=== PATIENT | male | born 1975 | race Hispanic/Latino ===

== ENCOUNTER 2017-09-17 00:54 | Inpatient (IN) | payer MEDICAID, OTHER ==
[~2017-09-17] VITALS: Ht 149.9 cm; Wt 70.1 kg
[2017-09-18] VITALS (13 sets, daily range): BP systolic 78–89; BP diastolic 58–68
[2017-09-18 04:59] LABS: MEAN CORPUSCULAR HEMOGLOBIN 30.7 pg (27.0-33.0); MEAN CORPUSCULAR HGB CONC 33.9 g/dL (32.0-36.0); MEAN CORPUSCULAR VOLUME 90.5 fL (79-99); PLATELET COUNT (AUTO) 193 K/uL (130-400); RED BLOOD CELL COUNT(AUTO) 5.19 MIL/uL (4.50-6.20); RED CELL DISTRIBUTION WIDTH 14.1 % (11.0-15.5); WHITE BLOOD COUNT (AUTO) 6.3 K/uL (4.8-10.8)
[2017-09-18 05:04] LABS: INR 1.01 (0.85-1.15); PARTIAL THROMBOPLASTIN TIME 25.5 SEC (26.3-35.5); PROTHROMBIN TIME 10.6 SEC (9.6-11.6)
[2017-09-18] MEDS ORDERED: ATOR10 PO (05:10)
[2017-09-18] MEDS ORDERED: FAMO20PI2 IV (05:10)
[2017-09-18] MEDS ORDERED: ENOX40DI9 SQ (05:10)
[2017-09-18] MEDS ORDERED: METO25TA6 PO (05:10)
[2017-09-18] MEDS ORDERED: FURO20TA4 PO (05:10)
[2017-09-18] MEDS ORDERED: ASPI-1005 PO (05:10)
[2017-09-18 05:11] LABS: BAND NEUTROPHILS % (MANUAL) 5 % (0-2); EOSINOPHILS % (MANUAL) 2 % (1-6); LYMPHOCYTES % (MANUAL) 20 % (22-44); MONOCYTES % (MANUAL) 8 % (2-9); SEGMENTED NEUTROPHILS % 65 % (40-70)
[2017-09-18 05:12] LABS: MAN.DIFF COMMENT-IMPRESSION MANUAL DIFFERENTIAL; PLATELET MORPHOLOGY COMMENT ADEQUATE
[2017-09-18 05:23] LABS: ALBUMIN 3.6 g/dL (3.5-5.0); BILIRUBIN,TOTAL 0.8 mg/dL (0.2-1.0); CREATINE KINASE MB 0.5 ng/mL (0.5-3.6); CREATININE 1.4 mg/dL (0.5-1.5); POTASSIUM 3.8 mmol/L (3.5-5.1); TOTAL PROTEIN, SERUM 6.7 g/dL (6.0-8.3); TROPONIN I 0.06 ng/mL (0.00-0.06)
[2017-09-18 05:39] LABS: HEMOGLOBIN A1C 5.7 % (4.0-6.0)
[2017-09-18] MEDS ORDERED: ACETAMINOPHEN 325 MG TAB PO PRN (06:00)
[2017-09-18] MEDS ORDERED: ONDANSETRON HCL MDV 20ML 2 MG/ML VIAL IVP PRN (06:00)
[2017-09-18] MEDS ORDERED: FUROSEMIDE 20 MG TABLET PO SCH (07:30)
[2017-09-18] MEDS: FAMOTIDINE/PF 20 MG/2 ML VIAL IV SCH (09:00)
[2017-09-18] MEDS: METOPROLOL TARTRATE 25 MG TAB PO SCH ×2 (09:00→20:24)
[2017-09-18] MEDS ORDERED: ASPIRIN 81MG TAB.CHEW PO SCH (09:00)
[2017-09-18] MEDS ORDERED: ENOXAPARIN SODIUM 40 MG/0.4 ML SYRINGE SQ SCH (09:00)
[2017-09-18] MEDS ORDERED: SODIUM CHLORIDE 0.9% 1000ML 1,000 ML IV ONE (11:52)
[2017-09-18] MEDS ORDERED: HEPARIN SODIUM 1000UNIT/ML 10ML VIAL ONE (11:58)
[2017-09-18] MEDS ORDERED: NITROGLYCERIN 5 MG/ML 10 ML VIAL IV ONE (11:58)
[2017-09-18] MEDS ORDERED: IOPAMIDOL-370 100 ML VIAL IV ONE (11:58)
[2017-09-18] MEDS ORDERED: LIDOCAINE HCL 1% 20 ML VIAL ONE (11:58)
[2017-09-18] MEDS ORDERED: HEPARIN SODIUM 1000UNIT/ML 10ML VIAL IV ONE (12:00)
[2017-09-18] MEDS ORDERED: ALBUMIN (HUMAN) 25% 50 ML IV ONE (12:00)
[2017-09-18] MEDS ORDERED: CALCIUM CHLORIDE 100 MG/ML 10 ML SYG IVP ONE (12:00)
[2017-09-18] MEDS ORDERED: SODIUM BICARB 8.4% 50ML SYRINGE IVP ONE (12:00)
[2017-09-18] MEDS ORDERED: AMINOCAPROIC ACID 250 MG/ML 20 ML VIAL IV ONE (12:00)
[2017-09-18] MEDS ORDERED: MANNITOL 25% 50ML VIAL IV ONE (12:00)
[2017-09-18] MEDS: SODIUM CHLORIDE 0.9% 1000ML 1,000 ML IV SCH (17:15)
[2017-09-18] MEDS ORDERED: ATORVASTATIN CALCIUM 10 MG TABLET PO SCH (21:00)
[2017-09-19] VITALS (13 sets, daily range): BP systolic 80–139; BP diastolic 45–78
[2017-09-19] MEDS: SODIUM CHLORIDE 0.9% 1000ML 1,000 ML IV SCH ×2 (00:44→12:38)
[2017-09-19 04:58] LABS: MEAN CORPUSCULAR VOLUME 91.2 fL (79-99); NUCLEATED RED BLOOD CELLS 0.1 % (0.0-0.19); PLATELET COUNT (AUTO) 196 K/uL (130-400); RED BLOOD CELL COUNT(AUTO) 4.93 MIL/uL (4.50-6.20); RED CELL DISTRIBUTION WIDTH 13.9 % (11.0-15.5); WHITE BLOOD COUNT (AUTO) 6.2 K/uL (4.8-10.8)
[2017-09-19 05:07] LABS: CREATININE 1.3 mg/dL (0.5-1.5); POTASSIUM 4.1 mmol/L (3.5-5.1)
[2017-09-19 05:52] LABS: BASOPHILS % (MANUAL) 1 % (0-2); EOSINOPHILS % (MANUAL) 1 % (1-6); LYMPHOCYTES % (MANUAL) 45 % (22-44); MAN.DIFF COMMENT-IMPRESSION MANUAL DIFFERENTIAL; MONOCYTES % (MANUAL) 10 % (2-9); PLATELET MORPHOLOGY COMMENT ADEQUATE; SEGMENTED NEUTROPHILS % 43 % (40-70)
[2017-09-19] MEDS: FAMOTIDINE/PF 20 MG/2 ML VIAL IV SCH (09:00)
[2017-09-19] MEDS ORDERED: METOPROLOL TARTRATE 25 MG TAB PO SCH (09:00)
[2017-09-19] MEDS ORDERED: PANTOPRAZOLE 40 MG/VIAL IVP SCH (09:30)
[2017-09-19] MEDS ORDERED: NITROGLYCERIN 50 MG/D5% WATER 1 BOT ONE (11:55)
[2017-09-19] MEDS ORDERED: AMINOCAPROIC ACID 250 MG/ML 20 ML VIAL IV ONE ×2 (11:55→15:17)
[2017-09-19] MEDS ORDERED: CEFUROXIME 1.5GM+NS 100ML 100 ML IV SCH (12:00)
[2017-09-19] MEDS: CEFUROXIME SODIUM 1.5 GM VIAL IVP SCH ×2 (12:00→14:30)
[2017-09-19] MEDS ORDERED: BACITRACIN 50,000 UNIT VIAL ONE (12:44)
[2017-09-19] MEDS ORDERED: OCTYL 2-CYANOACRYLATE 1 EACH TP ONE (12:44)
[2017-09-19] MEDS ORDERED: FENTANYL CITRATE PF 50 MCG/1 ML 5ML AMP IV ONE ×2 (13:47)
[2017-09-19] MEDS ORDERED: MIDAZOLAM HCL 1 MG/ML 5ML VIAL ONE (13:47)
[2017-09-19] MEDS ORDERED: PROPOFOL 10 MG/ML 20ML VIAL IV ONE (13:48)
[2017-09-19] MEDS ORDERED: ROPIVACAINE 0.2% 2MG/ML 100ML VIAL IJ ONE (14:00)
[2017-09-19 14:19] LABS: ABG BASE EXCESS -3.7 mmol/L (-2.0-3.0); ABG HCO3 19.1 mmol/L (21.0-28.0); ABG OXYGEN SATURATION 99.5 % (95.0-99.0); ABG PCO2 29 mmHg (35-48)
[2017-09-19] MEDS ORDERED: EPINEPHRINE 1 MG/ML AMPULE ONE ×2 (15:17→23:15)
[2017-09-19] MEDS ORDERED: ROCURONIUM BROMIDE 10MG/1ML 5ML VL ONE ×2 (15:17→17:46)
[2017-09-19] MEDS ORDERED: PROTAMINE SULFATE 10 MG/ML 25ML VIAL IV ONE (15:17)
[2017-09-19] MEDS ORDERED: HEPARIN SODIUM 1000UNIT/ML 10ML VIAL ONE (15:17)
[2017-09-19] MEDS ORDERED: NOREPINEPHRINE BITARTRATE 1 MG/1 ML ML IV ONE ×3 (15:17→22:54)
[2017-09-19] MEDS ORDERED: MILRINONE-D5W 20 MG/100 ML 100 ML IV ONE (15:17)
[2017-09-19] MEDS ORDERED: ESMOLOL HCL 10 MG/ML 10 ML VIAL ONE (15:17)
[2017-09-19] MEDS ORDERED: AMIODARONE HCL 900MG/18ML IV ONE (15:17)
[2017-09-19] MEDS ORDERED: LIDOCAINE PF 2% 5ML ABBOJECT ONE (15:17)
[2017-09-19] MEDS ORDERED: GLYCOPYRROLATE 0.2 MG/ML 5 ML VIAL ONE (15:17)
[2017-09-19] MEDS: AMBU PUMP 1 EACH EACH MISC SCH ×2 (15:30→15:31)
[2017-09-19] MEDS ORDERED: PROTAMINE SULFATE 10 MG/ML 5 ML VIAL ONE (15:54)
[2017-09-19 16:08] LABS: ABG BASE EXCESS -3.1 mmol/L (-2.0-3.0); ABG HCO3 21.8 mmol/L (21.0-28.0); ABG OXYGEN SATURATION 99.2 % (95.0-99.0); ABG PCO2 38 mmHg (35-48)
[2017-09-19 16:38] LABS: ABG BASE EXCESS 1.4 mmol/L (-2.0-3.0); ABG HCO3 25.7 mmol/L (21.0-28.0); ABG OXYGEN SATURATION 99.1 % (95.0-99.0); ABG PCO2 39 mmHg (35-48)
[2017-09-19 17:14] LABS: ABG BASE EXCESS -1.7 mmol/L (-2.0-3.0); ABG HCO3 22.3 mmol/L (21.0-28.0); ABG OXYGEN SATURATION 99.1 % (95.0-99.0); ABG PCO2 35 mmHg (35-48)
[2017-09-19] MEDS ORDERED: SODIUM CHLORIDE 0.9% 500ML 500 ML IV SCH (17:35)
[2017-09-19] MEDS ORDERED: NITROGLYCERIN 50 MG/D5% WATER 250 BOT IV SCH (17:45)
[2017-09-19] MEDS ORDERED: ACETAMINOPHEN 650 MG SUPPOSITORY RC PRN (17:45)
[2017-09-19] MEDS ORDERED: PROPOFOL 1000 MG/100 ML 100 ML IV PRN (17:45)
[2017-09-19] MEDS ORDERED: EPINEPHRINE 2 MG in SODIUM CHLORIDE 0.9% 250 ML IV PRN (17:45)
[2017-09-19] MEDS ORDERED: INSULIN REGULAR, HUMAN 3ML 100 UNIT in SODIUM CHLORIDE 0.9% 99 ML IV SCH ×2 (17:45)
[2017-09-19] MEDS ORDERED: ONDANSETRON HCL MDV 20ML 2 MG/ML VIAL IV PRN (17:45)
[2017-09-19] MEDS ORDERED: SODIUM CHLORIDE 0.9% 250 ML IV PRN (17:45)
[2017-09-19] MEDS ORDERED: THROMBIN-JMI 5000 UNIT/VIAL TP ONE (17:45)
[2017-09-19] MEDS ORDERED: HYDROCODONE/ACETAMINOPHEN 5/325 MG TAB PO PRN (17:45)
[2017-09-19] MEDS ORDERED: SODIUM CHLORIDE 0.9% 1000ML 1,000 ML IV SCH (17:45)
[2017-09-19] MEDS ORDERED: NOREPINEPHRINE 4MG/NS 250ML 250 ML IV PRN (17:45)
[2017-09-19] MEDS ORDERED: AMINOCAPROIC ACID 15,000 MG in SODIUM CHLORIDE 0.9% 250 ML IV SCH (17:45)
[2017-09-19] MEDS ORDERED: GLUCAGON 1MG KIT 1 MG ML IM PRN (17:45)
[2017-09-19] MEDS ORDERED: MAGNESIUM 2GM PREMIX 50ML 50 ML IV PRN (17:45)
[2017-09-19] MEDS ORDERED: POTASSIUM PHOS 15 mMOL+NS250ML 250 ML IV PRN (17:45)
[2017-09-19] MEDS ORDERED: DELNIDO FORMULA 2 BAG IV ONE (17:45)
[2017-09-19] MEDS ORDERED: NICARDIPINE HCL 100 MG in SODIUM CHLORIDE 0.9% 100 ML IV PRN (17:45)
[2017-09-19] MEDS ORDERED: DEXTROSE 50%-WATER 50 ML DISP.SYRIN IV PRN (17:45)
[2017-09-19] MEDS ORDERED: SODIUM BICARB 8.4% 50ML SYRINGE IV PRN (17:45)
[2017-09-19] MEDS ORDERED: ALBUMIN (HUMAN) 5% 250 ML IV PRN (17:45)
[2017-09-19] MEDS ORDERED: MILRINONE-D5W 20 MG/100 ML 100 ML IV SCH (17:45)
[2017-09-19] MEDS ORDERED: MORPHINE SULFATE 4 MG/1ML SYG IV PRN (17:45)
[2017-09-19] MEDS ORDERED: CALCIUM GLUCONATE 1 GM in SODIUM CHLORIDE 0.9% 50 ML IV PRN (17:45)
[2017-09-19] MEDS ORDERED: SODIUM CHLORIDE 0.9% 10 ML VIAL IVP PRN (17:45)
[2017-09-19] MEDS ORDERED: CEFUROXIME SODIUM 1.5 GM VIAL ONE (17:54)
[2017-09-19 18:07] LABS: ABG BASE EXCESS -3.3 mmol/L (-2.0-3.0); ABG HCO3 21.2 mmol/L (21.0-28.0); ABG OXYGEN SATURATION 98.8 % (95.0-99.0); ABG PCO2 37 mmHg (35-48)
[2017-09-19 18:47] LABS: HEMATOCRIT 38.6 % (42-54); MEAN CORPUSCULAR HEMOGLOBIN 31.2 pg (27.0-33.0); MEAN CORPUSCULAR HGB CONC 34.2 g/dL (32.0-36.0); MEAN CORPUSCULAR VOLUME 91.5 fL (79-99); PLATELET COUNT (AUTO) 91 K/uL (130-400); RED BLOOD CELL COUNT(AUTO) 4.22 MIL/uL (4.50-6.20); RED CELL DISTRIBUTION WIDTH 14.2 % (11.0-15.5); WHITE BLOOD COUNT (AUTO) 22.4 K/uL (4.8-10.8)
[2017-09-19 18:59] LABS: CREATININE 1.3 mg/dL (0.5-1.5); MAGNESIUM 2.3 mg/dL (1.80-2.40); POTASSIUM 3.6 mmol/L (3.5-5.1)
[2017-09-19 19:23] LABS: ABG BASE EXCESS -6.9 mmol/L (-2.0-3.0); ABG HCO3 20.8 mmol/L (21.0-28.0); ABG OXYGEN SATURATION 94.2 % (95.0-99.0); ABG PCO2 50 mmHg (35-48)
[2017-09-19] MEDS ORDERED: SODIUM BICARB 50MEQ 50ML VIAL ONE (19:26)
[2017-09-19] MEDS: POTASSIUM CHLORIDE 20MEQ/100ML 100 ML IV PRN (19:49)
[2017-09-19 21:13] LABS: ABG BASE EXCESS -5.6 mmol/L (-2.0-3.0); ABG HCO3 20.3 mmol/L (21.0-28.0); ABG OXYGEN SATURATION 97.2 % (95.0-99.0); ABG PCO2 41 mmHg (35-48)
[2017-09-19] MEDS ORDERED: PHENYLEPHRINE HCL 10 MG/ML 1ML VIAL IV ONE ×2 (22:25→22:43)
[2017-09-19] MEDS ORDERED: VASOPRESSIN 20 UNITS/ML 1ML VIAL ONE (22:27)
[2017-09-19] MEDS ORDERED: PHENYLEPHRINE HCL 50 MG in SODIUM CHLORIDE 0.9% 250 ML IV SCH (22:30)
[2017-09-19] MEDS ORDERED: VASOPRESSIN 125 UNITS in SODIUM CHLORIDE 0.9% 250 ML IV PRN (22:30)
[2017-09-20] VITALS (35 sets, daily range): BP systolic 83–152; BP diastolic 36–71
[2017-09-20] MEDS ORDERED: CEFUROXIME 1.5GM+NS 100ML 100 ML IV SCH (01:45)
[2017-09-20] MEDS: CEFUROXIME SODIUM 1.5 GM VIAL IVP SCH ×2 (01:54→13:58)
[2017-09-20 02:03] LABS: ABG BASE EXCESS -0.8 mmol/L (-2.0-3.0); ABG HCO3 23.7 mmol/L (21.0-28.0); ABG OXYGEN SATURATION 96.3 % (95.0-99.0); ABG PCO2 38 mmHg (35-48)
[2017-09-20] MEDS: MORPHINE SULFATE 2 MG/ML 1ML SYG IV PRN ×2 (04:26→06:29)
[2017-09-20 04:28] LABS: HEMATOCRIT 26.4 % (42-54); MEAN CORPUSCULAR HEMOGLOBIN 30.7 pg (27.0-33.0); MEAN CORPUSCULAR HGB CONC 33.8 g/dL (32.0-36.0); MEAN CORPUSCULAR VOLUME 90.8 fL (79-99); PLATELET COUNT (AUTO) 53 K/uL (130-400); RED BLOOD CELL COUNT(AUTO) 2.91 MIL/uL (4.50-6.20); RED CELL DISTRIBUTION WIDTH 13.8 % (11.0-15.5); WHITE BLOOD COUNT (AUTO) 12.3 K/uL (4.8-10.8)
[2017-09-20 04:34] LABS: CREATININE 1.7 mg/dL (0.5-1.5); PHOSPHORUS 2.8 mg/dL (2.5-4.9)
[2017-09-20] MEDS ORDERED: PHENYLEPHRINE HCL 10 MG/ML 1ML VIAL IV ONE (04:50)
[2017-09-20] MEDS ORDERED: NOREPINEPHRINE BITARTRATE 1 MG/1 ML ML IV ONE (04:59)
[2017-09-20] MEDS: POTASSIUM CHLORIDE 20MEQ/100ML 100 ML IV PRN (06:28)
[2017-09-20 06:35] LABS: ABG BASE EXCESS 0.7 mmol/L (-2.0-3.0); ABG HCO3 26.8 mmol/L (21.0-28.0); ABG PCO2 51 mmHg (35-48)
[2017-09-20] MEDS ORDERED: PROTAMINE SULFATE 10 MG/ML 5 ML VIAL IVP SCH (07:11)
[2017-09-20 07:51] LABS: MEAN CORPUSCULAR HEMOGLOBIN 30.1 pg (27.0-33.0); MEAN CORPUSCULAR HGB CONC 32.9 g/dL (32.0-36.0); MEAN CORPUSCULAR VOLUME 91.4 fL (79-99); MONOCYTES % (AUTO) 7.6 % (3.0-13.0); NEUTROPHILS % (AUTO) 85.4 % (40.0-77.0); PLATELET COUNT (AUTO) 48 K/uL (130-400); RED BLOOD CELL COUNT(AUTO) 2.63 MIL/uL (4.50-6.20); WHITE BLOOD COUNT (AUTO) 11.1 K/uL (4.8-10.8)
[2017-09-20] MEDS: PANTOPRAZOLE SODIUM 40 MG TABLET.DR PO SCH (08:10)
[2017-09-20 09:25] LABS: INR 1.49 (0.85-1.15); PARTIAL THROMBOPLASTIN TIME 34.7 SEC (26.3-35.5); PROTHROMBIN TIME 15.5 SEC (9.6-11.6)
[2017-09-20 09:31] LABS: ABG BASE EXCESS 2.3 mmol/L (-2.0-3.0); ABG HCO3 27.5 mmol/L (21.0-28.0); ABG OXYGEN SATURATION 97.6 % (95.0-99.0); ABG PCO2 45 mmHg (35-48)
[2017-09-20] MEDS: AMBU PUMP 1 EACH EACH MISC SCH (13:59)
[2017-09-20] MEDS: HYDROCODONE/ACETAMINOPHEN 5/325 MG TAB PO PRN (15:58)
[2017-09-20 17:58] LABS: HEMATOCRIT 24.2 % (42-54); MEAN CORPUSCULAR HEMOGLOBIN 29.2 pg (27.0-33.0); MEAN CORPUSCULAR HGB CONC 33.6 g/dL (32.0-36.0); PLATELET COUNT (AUTO) 63 K/uL (130-400); RED BLOOD CELL COUNT(AUTO) 2.78 MIL/uL (4.50-6.20); RED CELL DISTRIBUTION WIDTH 15.9 % (11.0-15.5); WHITE BLOOD COUNT (AUTO) 12.9 K/uL (4.8-10.8)
[2017-09-21] VITALS (24 sets, daily range): BP systolic 94–158; BP diastolic 42–80
[2017-09-21] MEDS: MORPHINE SULFATE 2 MG/ML 1ML SYG IV PRN (00:37)
[2017-09-21] MEDS ORDERED: CEFUROXIME SODIUM 1.5 GM VIAL ONE (03:32)
[2017-09-21] MEDS: CEFUROXIME SODIUM 1.5 GM VIAL IVP SCH (03:34)
[2017-09-21 03:42] LABS: HEMATOCRIT 25.7 % (42-54); MEAN CORPUSCULAR HEMOGLOBIN 29.9 pg (27.0-33.0); MEAN CORPUSCULAR VOLUME 87.8 fL (79-99); PLATELET COUNT (AUTO) 48 K/uL (130-400); RED BLOOD CELL COUNT(AUTO) 2.92 MIL/uL (4.50-6.20); RED CELL DISTRIBUTION WIDTH 15.6 % (11.0-15.5)
[2017-09-21 03:50] LABS: CREATININE 1.3 mg/dL (0.5-1.5); POTASSIUM 4.5 mmol/L (3.5-5.1)
[2017-09-21] MEDS: HYDROCODONE/ACETAMINOPHEN 5/325 MG TAB PO PRN ×2 (04:10→13:44)
[2017-09-21 09:21] LABS: HEMATOCRIT 27.5 % (42-54)
[2017-09-21] MEDS ORDERED: FUROSEMIDE 10 MG/ML 2ML VIAL IV SCH (11:30)
[2017-09-21] MEDS: PANTOPRAZOLE SODIUM 40 MG TABLET.DR PO SCH (11:34)
[2017-09-21] MEDS: AMBU PUMP 1 EACH EACH MISC SCH (19:00)
[2017-09-21] MEDS: GABAPENTIN 100 MG CAPSULE PO SCH (21:35)
[2017-09-21] MEDS: ACETAMINOPHEN 325 MG TAB PO PRN (21:36)
[2017-09-22] VITALS (25 sets, daily range): BP systolic 85–118; BP diastolic 34–60
[2017-09-22 04:07] LABS: ABG BASE EXCESS 3.8 mmol/L (-2.0-3.0); ABG HCO3 28.2 mmol/L (21.0-28.0); ABG OXYGEN SATURATION 98.9 % (95.0-99.0); ABG PCO2 42 mmHg (35-48)
[2017-09-22 04:30] LABS: HEMATOCRIT 27.1 % (42-54); MEAN CORPUSCULAR HEMOGLOBIN 29.3 pg (27.0-33.0); MEAN CORPUSCULAR HGB CONC 33.4 g/dL (32.0-36.0); MEAN CORPUSCULAR VOLUME 87.7 fL (79-99); PLATELET COUNT (AUTO) 27 K/uL (130-400); RED BLOOD CELL COUNT(AUTO) 3.09 MIL/uL (4.50-6.20); RED CELL DISTRIBUTION WIDTH 14.8 % (11.0-15.5); WHITE BLOOD COUNT (AUTO) 11.6 K/uL (4.8-10.8)
[2017-09-22 04:46] LABS: INR 1.02 (0.85-1.15); PARTIAL THROMBOPLASTIN TIME 33.4 SEC (26.3-35.5); PROTHROMBIN TIME 10.7 SEC (9.6-11.6)
[2017-09-22 05:14] LABS: ALBUMIN 2.1 g/dL (3.5-5.0); BILIRUBIN,TOTAL 1.3 mg/dL (0.2-1.0); CREATININE 1.1 mg/dL (0.5-1.5); MAGNESIUM 2.3 mg/dL (1.80-2.40); PHOSPHORUS 2.6 mg/dL (2.5-4.9); POTASSIUM 4.1 mmol/L (3.5-5.1); TOTAL PROTEIN, SERUM 4.4 g/dL (6.0-8.3)
[2017-09-22] MEDS: FUROSEMIDE 20 MG TABLET PO SCH ×2 (08:35→16:40)
[2017-09-22] MEDS: GABAPENTIN 100 MG CAPSULE PO SCH ×2 (08:35→20:03)
[2017-09-22] MEDS: PANTOPRAZOLE SODIUM 40 MG TABLET.DR PO SCH (08:35)
[2017-09-22] MEDS: AMBU PUMP 1 EACH EACH MISC SCH (15:14)
[2017-09-22] MEDS: ACETAMINOPHEN 325 MG TAB PO PRN (20:04)
[2017-09-22] MEDS: IPRATROPIUM/ALBUTEROL SULFATE 3 ML SOLUTION IH SCH (23:44)
[2017-09-23] VITALS (19 sets, daily range): BP systolic 87–120; BP diastolic 34–58
[2017-09-23 04:29] LABS: BASOPHILS % (AUTO) 0.1 % (0.0-5.0); EOSINOPHILS % (AUTO) 3.2 % (0.0-8.0); HEMATOCRIT 27.4 % (42-54); LYMPHOCYTES % (AUTO) 9.6 % (21.0-51.0); MEAN CORPUSCULAR HEMOGLOBIN 31.1 pg (27.0-33.0); MEAN CORPUSCULAR HGB CONC 35.3 g/dL (32.0-36.0); MEAN CORPUSCULAR VOLUME 88.2 fL (79-99); MONOCYTES % (AUTO) 7.3 % (3.0-13.0); NEUTROPHILS % (AUTO) 79.8 % (40.0-77.0); NUCLEATED RED BLOOD CELLS 0.1 % (0.0-0.19); RED CELL DISTRIBUTION WIDTH 14.2 % (11.0-15.5); WHITE BLOOD COUNT (AUTO) 10.9 K/uL (4.8-10.8)
[2017-09-23 04:37] LABS: ABG BASE EXCESS 5.1 mmol/L (-2.0-3.0); ABG OXYGEN SATURATION 98.1 % (95.0-99.0); ABG PCO2 45 mmHg (35-48)
[2017-09-23 04:37] LABS: INR 0.94 (0.85-1.15); PARTIAL THROMBOPLASTIN TIME 30.1 SEC (26.3-35.5); PROTHROMBIN TIME 9.9 SEC (9.6-11.6)
[2017-09-23 04:44] LABS: ALBUMIN 2.2 g/dL (3.5-5.0); BILIRUBIN,TOTAL 0.9 mg/dL (0.2-1.0); CREATININE 1.1 mg/dL (0.5-1.5); MAGNESIUM 2.1 mg/dL (1.80-2.40); PHOSPHORUS 2.3 mg/dL (2.5-4.9); TOTAL PROTEIN, SERUM 4.8 g/dL (6.0-8.3)
[2017-09-23 04:54] LABS: PLATELET COUNT (AUTO) 24 K/uL (130-400)
[2017-09-23] MEDS: IPRATROPIUM/ALBUTEROL SULFATE 3 ML SOLUTION IH SCH ×3 (06:16→18:19)
[2017-09-23] MEDS: PANTOPRAZOLE SODIUM 40 MG TABLET.DR PO SCH (08:18)
[2017-09-23] MEDS: METOPROLOL TARTRATE 25 MG TAB PO SCH ×3 (08:19→21:00)
[2017-09-23] MEDS: FUROSEMIDE 20 MG TABLET PO SCH ×2 (08:19→16:29)
[2017-09-23] MEDS: GABAPENTIN 100 MG CAPSULE PO SCH ×2 (08:19→20:17)
[2017-09-23] MEDS: ACETAMINOPHEN 325 MG TAB PO PRN ×2 (08:20→21:41)
[2017-09-23] MEDS ORDERED: ENOXAPARIN SODIUM 30 MG/0.3 ML SQ SCH (09:00)
[2017-09-24] VITALS (7 sets, daily range): BP systolic 99–170; BP diastolic 41–95
[2017-09-24] MEDS: IPRATROPIUM/ALBUTEROL SULFATE 3 ML SOLUTION IH SCH ×5 (00:07→23:11)
[2017-09-24 04:47] LABS: HEMATOCRIT 27.3 % (42-54); MEAN CORPUSCULAR HEMOGLOBIN 29.6 pg (27.0-33.0); MEAN CORPUSCULAR HGB CONC 33.4 g/dL (32.0-36.0); MEAN CORPUSCULAR VOLUME 88.5 fL (79-99); PLATELET COUNT (AUTO) 33 K/uL (130-400); RED BLOOD CELL COUNT(AUTO) 3.08 MIL/uL (4.50-6.20); RED CELL DISTRIBUTION WIDTH 14.2 % (11.0-15.5); WHITE BLOOD COUNT (AUTO) 8.5 K/uL (4.8-10.8)
[2017-09-24 05:08] LABS: CREATININE 0.8 mg/dL (0.5-1.5); POTASSIUM 3.4 mmol/L (3.5-5.1)
[2017-09-24] MEDS: GABAPENTIN 100 MG CAPSULE PO SCH ×2 (08:46→20:41)
[2017-09-24] MEDS: PANTOPRAZOLE SODIUM 40 MG TABLET.DR PO SCH (08:46)
[2017-09-24] MEDS: FUROSEMIDE 20 MG TABLET PO SCH ×2 (08:47→16:32)
[2017-09-24] MEDS: METOPROLOL TARTRATE 25 MG TAB PO SCH (08:53)
[2017-09-24] MEDS ORDERED: LIDOCAINE HCL-MPF 1% 2ML VIAL IVP PRN (11:45)
[2017-09-24] MEDS ORDERED: POTASSIUM CHLORIDE 20MEQ/100ML 100 ML IV PRN (11:45)
[2017-09-24] MEDS ORDERED: POTASSIUM CHLORIDE 10% ELIXIR 20 MEQ/15 ML UDCUP PO PRN (11:45)
[2017-09-24] MEDS: POTASSIUM CHLORIDE 20 MEQ ERTAB PO PRN ×2 (14:03→16:32)
[2017-09-24] MEDS: LEVOFLOXACIN 750 MG/D5W 150 ML 150 ML IV SCH (16:33)
[2017-09-24] MEDS ORDERED: METOPROLOL TARTRATE 25 MG TAB PO SCH (21:00)
[2017-09-24] MEDS ORDERED: BENZONATATE 100 MG CAPSULE PO PRN (23:30)
[2017-09-24] MEDS ORDERED: BENZOCAINE/MENTH/CETYLPYRD CL 1 EACH LOZENGE MM PRN (23:30)
[2017-09-24] MEDS ORDERED: BENZONATATE 100 MG CAPSULE PO ONE (23:36)
[2017-09-25 03:42] VITALS: BP 111/58
[2017-09-25 04:10] LABS: HEMATOCRIT 25.1 % (42-54); MEAN CORPUSCULAR HEMOGLOBIN 31.6 pg (27.0-33.0); MEAN CORPUSCULAR HGB CONC 35.9 g/dL (32.0-36.0); MEAN CORPUSCULAR VOLUME 88.1 fL (79-99); NUCLEATED RED BLOOD CELLS 0.1 % (0.0-0.19); PLATELET COUNT (AUTO) 40 K/uL (130-400); RED BLOOD CELL COUNT(AUTO) 2.85 MIL/uL (4.50-6.20); RED CELL DISTRIBUTION WIDTH 14.3 % (11.0-15.5); WHITE BLOOD COUNT (AUTO) 9.6 K/uL (4.8-10.8)
[2017-09-25 04:21] LABS: MAGNESIUM 1.5 mg/dL (1.80-2.40); POTASSIUM 3.7 mmol/L (3.5-5.1)
[2017-09-25] MEDS: IPRATROPIUM/ALBUTEROL SULFATE 3 ML SOLUTION IH SCH ×4 (05:53→23:21)
[2017-09-25] MEDS ORDERED: POTASSIUM CHLORIDE 10 MEQ/TAB.SA PO ONE ×2 (06:12)
[2017-09-25 07:33] VITALS: BP 99/52
[2017-09-25] MEDS: PANTOPRAZOLE SODIUM 40 MG TABLET.DR PO SCH (09:12)
[2017-09-25] MEDS: LEVOFLOXACIN 750 MG/D5W 150 ML 150 ML IV SCH (09:12)
[2017-09-25] MEDS: CARVEDILOL 6.25 MG TABLET PO SCH ×2 (09:13→20:36)
[2017-09-25] MEDS: FUROSEMIDE 40 MG TABLET PO SCH (09:13)
[2017-09-25] MEDS: GABAPENTIN 100 MG CAPSULE PO SCH ×2 (09:14→20:36)
[2017-09-25] MEDS: POTASSIUM CHLORIDE 20 MEQ ERTAB PO PRN (09:27)
[2017-09-25 11:02] VITALS: BP 96/57
[2017-09-25 16:10] VITALS: BP 97/83
[2017-09-25] MEDS: HYDROCODONE/ACETAMINOPHEN 5/325 MG TAB PO PRN (19:16)
[2017-09-25 19:35] VITALS: BP 107/53
[2017-09-25 23:28] VITALS: BP 97/52
[2017-09-26 04:04] VITALS: BP 95/54
[2017-09-26 04:44] LABS: HEMATOCRIT 26.1 % (42-54); MEAN CORPUSCULAR HEMOGLOBIN 30.4 pg (27.0-33.0); MEAN CORPUSCULAR HGB CONC 34.4 g/dL (32.0-36.0); MEAN CORPUSCULAR VOLUME 88.4 fL (79-99); NUCLEATED RED BLOOD CELLS 0.1 % (0.0-0.19); PLATELET COUNT (AUTO) 59 K/uL (130-400); RED BLOOD CELL COUNT(AUTO) 2.96 MIL/uL (4.50-6.20); RED CELL DISTRIBUTION WIDTH 14.1 % (11.0-15.5)
[2017-09-26 04:56] LABS: CREATININE 1.1 mg/dL (0.5-1.5); POTASSIUM 4.1 mmol/L (3.5-5.1)
[2017-09-26] MEDS: IPRATROPIUM/ALBUTEROL SULFATE 3 ML SOLUTION IH SCH ×2 (06:40→11:26)
[2017-09-26] MEDS ORDERED: FURO40TA7 PO (07:06)
[2017-09-26] MEDS ORDERED: KCL10IV IV (07:06)
[2017-09-26] MEDS ORDERED: CARV6.2579 PO (07:06)
[2017-09-26 07:43] VITALS: BP 101/52
[2017-09-26] MEDS: LEVOFLOXACIN 750 MG/D5W 150 ML 150 ML IV SCH (09:56)
[2017-09-26] MEDS: PANTOPRAZOLE SODIUM 40 MG TABLET.DR PO SCH (09:56)
[2017-09-26] MEDS: GABAPENTIN 100 MG CAPSULE PO SCH (09:56)
[2017-09-26] MEDS: FUROSEMIDE 40 MG TABLET PO SCH (09:57)
[2017-09-26] MEDS: CARVEDILOL 6.25 MG TABLET PO SCH (09:58)
[2017-09-26 11:01] VITALS: BP 106/55
== END 2017-09-26 15:11 | disposition home or self-care (01) | DRG 216 ==
LOC: EDHIP 09-18 03:47 → 2AH 09-18 04:10 → 2CV 09-19 12:22 → 2CH 09-20 15:43 → 2DH 09-23 16:33
PROVIDERS: ADMIT Family Medicine; ATTEND Family Medicine
PROC: 4A023N7 Measurement of Cardiac Sampling and Pressure, Left Heart, Percutaneous Approach (ICD-10-PCS; principal; 2017-09-18)
PROC: B2111ZZ Fluoroscopy of Multiple Coronary Arteries using Low Osmolar Contrast (ICD-10-PCS; 2017-09-18)
PROC: 4A023N7 Measurement of Cardiac Sampling and Pressure, Left Heart, Percutaneous Approach (ICD-10-PCS; 2017-09-18)
PROC: B2111ZZ Fluoroscopy of Multiple Coronary Arteries using Low Osmolar Contrast (ICD-10-PCS; 2017-09-18)
PROC: 02RF08Z Replacement of Aortic Valve with Zooplastic Tissue, Open Approach (ICD-10-PCS; 2017-09-19 13:45)
PROC: 30233L1 Transfusion of Nonautologous Fresh Plasma into Peripheral Vein, Percutaneous Approach (ICD-10-PCS; 2017-09-20)
PROC: 30233N1 Transfusion of Nonautologous Red Blood Cells into Peripheral Vein, Percutaneous Approach (ICD-10-PCS; 2017-09-20)
PROC: 30233R1 Transfusion of Nonautologous Platelets into Peripheral Vein, Percutaneous Approach (ICD-10-PCS; 2017-09-20)
PROC: 30233K1 Transfusion of Nonautologous Frozen Plasma into Peripheral Vein, Percutaneous Approach (ICD-10-PCS; 2017-09-20)
PROC: 0BH17EZ Insertion of Endotracheal Airway into Trachea, Via Natural or Artificial Opening (ICD-10-PCS; 2017-09-20)
PROC: 30233N1 Transfusion of Nonautologous Red Blood Cells into Peripheral Vein, Percutaneous Approach (ICD-10-PCS; 2017-09-21)
DX: I35.2 Nonrheumatic aortic (valve) stenosis with insufficiency (principal); D65 Disseminated intravascular coagulation [defibrination syndrome]; J96.91 Respiratory failure, unspecified with hypoxia; Z99.11 Dependence on respirator [ventilator] status; N17.9 Acute kidney failure, unspecified; J18.9 Pneumonia, unspecified organism; E44.0 Moderate protein-calorie malnutrition; I13.0 Hypertensive heart and chronic kidney disease with heart failure and stage 1 through stage 4 chronic kidney disease, or unspecified chronic kidney disease; I25.10 Atherosclerotic heart disease of native coronary artery without angina pectoris; I50.9 Heart failure, unspecified; M41.9 Scoliosis, unspecified; D64.9 Anemia, unspecified; E11.22 Type 2 diabetes mellitus with diabetic chronic kidney disease; Z99.81 Dependence on supplemental oxygen; Z95.3 Presence of xenogenic heart valve; Z86.2 Personal history of diseases of the blood and blood-forming organs and certain disorders involving the immune mechanism; Z79.82 Long term (current) use of aspirin; N18.9 Chronic kidney disease, unspecified; Y95 Nosocomial condition; E66.9 Obesity, unspecified; Z68.31 Body mass index [BMI] 31.0-31.9, adult; J98.2 Interstitial emphysema
CPT/HCPCS: 36415; 36430; 36600; 71045; 80048; 80053; 80061; 82330; 82435; 82550; 82553; 82803; 82947; 82948; 83036; 83605; 83735; 83874; 83880; 84100; 84132; 84295; 84484; 85014; 85018; 85025; 85027; 85347; 85384; 85610; 85730; 86850; 86900; 86901; 86922; 86927; 88305; 88311; 93005; 93306; 93318; 93454; 93880; 94002; 94003; 94010; 94150; 94640; 94664; 97039; A4218; A7048; C1760; C1894; C9113; J0171; J0282; J0697; J1644; J1650; J1815; J1940; J1956; J2001; J2150; J2250; J2260; J2270; J2370; J2704; J2720; J2795; J3010; J3475; J3480; J3490; J7030; J7040; P9016; P9017; P9034; P9045; P9047; Q9967

== ENCOUNTER 2018-04-20 14:15 | Emergency (ER) | payer MEDICAID, OTHER ==
[~2018-04-20 14:15] MED LIST: ASPI-1005 PO; ATOR10 PO; CARV6.2579 PO; FURO40TA7 PO; KCL10IV IV
[2018-04-20 15:37] LABS: BILIRUBIN,URINE Negative (NEGATIVE); COLOR,URINE Yellow (YELLOW); GLUCOSE, URINE (UA) Negative (NEGATIVE); KETONES,URINE Trace mg/dL (NEGATIVE); LEUKOCYTE ESTERASE ,URINE Negative (NEGATIVE); NITRATE,URINE Negative (NEGATIVE); OCCULT BLOOD,URINE Small (NEGATIVE); PROTEIN,URINE Trace (NEGATIVE); UROBILINOGEN,URINE 0.2 mg/dL (0.2-1.0)
[2018-04-20 15:43] LABS: APPEARANCE,URINE SLIGHTLY CLOUDY (CLEAR)
[2018-04-20 15:45] LABS: BASOPHILS % (AUTO) 0.4 % (0.0-5.0); EOSINOPHILS % (AUTO) 8.4 % (0.0-8.0); HEMATOCRIT 45.4 % (42-54); LYMPHOCYTES % (AUTO) 12.5 % (21.0-51.0); MEAN CORPUSCULAR HEMOGLOBIN 30.1 pg (27.0-33.0); MEAN CORPUSCULAR HGB CONC 33.5 g/dL (32.0-36.0); MEAN CORPUSCULAR VOLUME 89.8 fL (79-99); MONOCYTES % (AUTO) 5.2 % (3.0-13.0); NEUTROPHILS % (AUTO) 73.5 % (40.0-77.0); PLATELET COUNT (AUTO) 146 K/uL (130-400); RED BLOOD CELL COUNT(AUTO) 5.06 MIL/uL (4.50-6.20); RED CELL DISTRIBUTION WIDTH 15.7 % (11.0-15.5); WHITE BLOOD COUNT (AUTO) 10.5 K/uL (4.8-10.8)
[2018-04-20 15:54] LABS: CREATININE 1.1 mg/dL (0.5-1.5); POTASSIUM 4.1 mmol/L (3.5-5.1)
[2018-04-20 15:58] LABS: BACTERIA,URINE Few /HPF (None Seen); MUCUS,URINE Few LPF (None Seen); RBC,URINE 0-1 /HPF (0-1); SQUAMOUS EPITHELIAL CELL,UR Rare /HPF (0-2); WBC,URINE 0-1 /HPF (0-1)
[2018-04-20 15:58] LABS: INR 0.95 (0.85-1.15); PARTIAL THROMBOPLASTIN TIME 28.6 SEC (26.3-35.5)
[2018-04-20 15:59] LABS: ALBUMIN 4.3 g/dL (3.5-5.0); TOTAL PROTEIN, SERUM 8.2 g/dL (6.0-8.3)
[2018-04-20] MEDS ORDERED: IOHEXOL 350 MG/ML 100ML INFUS..BTL IV ONE (16:42)
== END 2018-04-20 18:36 | disposition home or self-care (01) ==
LOC: EDH 14:15
DX: M54.6 Pain in thoracic spine (principal); M41.9 Scoliosis, unspecified; Z98.890 Other specified postprocedural states
CPT/HCPCS: 36415; 71045; 71275; 80053; 81001; 82550; 84484; 85025; 85610; 85730; 86850; 86900; 86901; 93005; 99285; Q9967

== ENCOUNTER 2023-08-30 18:41 | Inpatient (IN) | payer MEDICAID ==
[~2023-08-30] VITALS: Ht 152.4 cm; Wt 65.3 kg
[~2023-08-30 18:41] MED LIST changes: +CARV-159 PO; -CARV6.2579 PO
[2023-08-30] MEDS ORDERED: LOSA50TA64 PO (22:55)
[2023-08-30] MEDS ORDERED: FURO40TA5 PO (22:55)
[2023-08-30] MEDS ORDERED: CARV12.511 PO (22:55)
[2023-08-30 23:00] VITALS: O2SAT 95
[2023-08-31] VITALS (16 sets, daily range): BP systolic 99–130; BP diastolic 46–70; PULSE 88–105; RESP 16–28; O2SAT 98
[2023-08-31] MEDS ORDERED: ONDANSETRON 4MG INJ IV PRN (03:30)
[2023-08-31] MEDS ORDERED: GLUCAGON 1MG KIT 1 MG ML IM PRN ×2 (03:30→10:00)
[2023-08-31] MEDS ORDERED: DEXTROSE 50%-WATER 50 ML DISP.SYRIN IV PRN ×2 (03:30→10:00)
[2023-08-31] MEDS ORDERED: POTASSIUM CHLORIDE 20MEQ/100ML 100 ML IV PRN (03:30)
[2023-08-31 05:42] LABS: BASOPHILS # (AUTO) 0.02 K/uL (0.00-0.20); BASOPHILS % (AUTO) 0.2 % (0.0-5.0); EOSINOPHILS # (AUTO) 0.01 K/uL (0.00-0.70); EOSINOPHILS % (AUTO) 0.1 % (0.0-8.0); HEMATOCRIT 36.4 % (42-54); IMMATURE GRANULOCYTE ABSOLUTE 0.03 K/uL (0-1); LYMPHOCYTES # (AUTO) 1.6 K/uL (1.0-4.8); MEAN CORPUSCULAR HEMOGLOBIN 31.9 pg (27.0-33.0); MEAN CORPUSCULAR HGB CONC 34.9 g/dL (32.0-36.0); MEAN CORPUSCULAR VOLUME 91.5 fL (79-99); MONOCYTES # (AUTO) 0.9 K/uL (0.1-1.0); MONOCYTES % (AUTO) 10.5 % (3.0-13.0); NEUTROPHILS # (AUTO) 5.8 K/uL (1.8-7.7); NEUTROPHILS % (AUTO) 69.8 % (40.0-77.0); NUCLEATED RED BLOOD CELLS 0.2 % (0.0-0.19); PLATELET COUNT (AUTO) 120 K/uL (130-400); RED BLOOD CELL COUNT(AUTO) 3.98 MIL/uL (4.50-6.20); RED CELL DISTRIBUTION WIDTH 15.1 % (11.0-15.5); WHITE BLOOD COUNT (AUTO) 8.3 K/uL (4.8-10.8)
[2023-08-31 05:55] LABS: HEMOGLOBIN A1C 5.8 % (4.0-6.0)
[2023-08-31] MEDS: INSULIN HUMULIN R 100 UNIT/ML 3ML SQ SCH (06:03)
[2023-08-31 06:05] LABS: B-TYPE NATRIURETIC PEPTIDE 3840 pg/mL (0-100)
[2023-08-31 06:20] LABS: ALBUMIN 3.3 g/dL (3.5-5.0); BILIRUBIN,TOTAL 2.4 mg/dL (0.2-1.0); CREATININE 2.4 mg/dL (0.5-1.5); MAGNESIUM 1.9 mg/dL (1.80-2.40); POTASSIUM 4.4 mmol/L (3.5-5.1)
[2023-08-31] MEDS ORDERED: 0.9% NACL 500ML IV.SOLN 500 ML IV SCH (08:30)
[2023-08-31] MEDS: FUROSEMIDE 20MG VIAL IV SCH (08:48)
[2023-08-31] MEDS ORDERED: HEPARIN 5,000 UNIT VIAL SQ SCH (09:00)
[2023-08-31] MEDS ORDERED: LIDOCAINE HCL 400MG/20ML VIAL ONE (09:02)
[2023-08-31] MEDS ORDERED: MIDAZOLAM HCL 1 MG/ML 2ML VIAL ONE (09:03)
[2023-08-31] MEDS ORDERED: IOHEXOL-350 75 ML VIAL IV ONE (09:03)
[2023-08-31] MEDS: MAGNESIUM 2GM PREMIX 50ML 50 ML IV PRN (12:46)
[2023-08-31] MEDS: FAMOTIDINE 20MG VIAL IV SCH (21:01)
[2023-08-31] MEDS: ALPRAZOLAM 0.5 MG TABLET PO ONE (23:51)
[2023-09-01] VITALS (9 sets, daily range): BP systolic 81–109; BP diastolic 44–55; PULSE 75–86; RESP 16–26; O2SAT 95–99
[2023-09-01] MEDS ORDERED: METOPROLOL TARTRATE 1 MG/ML 5ML VIAL IV ONE (03:30)
[2023-09-01 04:14] LABS: HEMATOCRIT 34.4 % (42-54); MEAN CORPUSCULAR HEMOGLOBIN 31.1 pg (27.0-33.0); MEAN CORPUSCULAR VOLUME 91.5 fL (79-99); RED BLOOD CELL COUNT(AUTO) 3.76 MIL/uL (4.50-6.20); RED CELL DISTRIBUTION WIDTH 14.9 % (11.0-15.5); WHITE BLOOD COUNT (AUTO) 9.1 K/uL (4.8-10.8)
[2023-09-01 04:46] LABS: BILIRUBIN,TOTAL 2.7 mg/dL (0.2-1.0); CREATININE 2.1 mg/dL (0.5-1.5); MAGNESIUM 2.3 mg/dL (1.80-2.40); POTASSIUM 4.3 mmol/L (3.5-5.1); TOTAL PROTEIN, SERUM 5.4 g/dL (6.0-8.3)
[2023-09-01] MEDS: CARVEDILOL 12.5 MG TABLET PO SCH (09:04)
[2023-09-01 14:02] LABS: INR 1.48 (0.85-1.15); PROTHROMBIN TIME 16.7 SEC (9.6-11.6)
[2023-09-01 14:03] LABS: PARTIAL THROMBOPLASTIN TIME 27.1 SEC (26.3-35.5)
[2023-09-01 14:28] LABS: APPEARANCE,URINE CLEAR (CLEAR); BILIRUBIN,URINE NEGATIVE (NEGATIVE); COLOR,URINE YELLOW (YELLOW); GLUCOSE, URINE (UA) NEGATIVE (NEGATIVE); KETONES,URINE NEGATIVE (NEGATIVE); LEUKOCYTE ESTERASE ,URINE NEGATIVE Leu/uL (NEGATIVE); NITRATE,URINE NEGATIVE (NEGATIVE); OCCULT BLOOD,URINE NEGATIVE (NEGATIVE); PH,URINE 5.5 (5.0-8.0); PROTEIN,URINE 10 mg/dL (NEGATIVE); UROBILINOGEN,URINE 0.2 mg/dL (0.2-1.0)
[2023-09-01 14:35] LABS: ADD UA MICROSCOPIC YES
[2023-09-01 14:41] LABS: AMPHET/METH SCREEN,URINE NEGATIVE (NEGATIVE); BARBITURATE SCREEN, URINE NEGATIVE (NEGATIVE); BENZODIAZEPINES SCREEN,URINE POSITIVE (NEGATIVE); CANNABINOID SCREEN,URINE NEGATIVE (NEGATIVE); COCAINE SCREEN,URINE NEGATIVE (NEGATIVE); OPIATE SCREEN,URINE NEGATIVE (NEGATIVE); PHENCYCLIDINE SCREEN,URINE NEGATIVE (NEGATIVE)
[2023-09-01 14:42] LABS: HYALINE CASTS, URINE >100 /LPF (0-1 /LPF); MUCUS,URINE RARE LPF (None Seen); RBC,URINE 0-1 /HPF (0-1); SQUAMOUS EPITHELIAL CELL,UR RARE /HPF (0-2)
[2023-09-01 16:07] LABS: % IRON SATURATION 9.7 % (30-44)
[2023-09-01 23:06] LABS: HEPATITIS A IGM ANTIBODY Non-Reactive (Nonreactive); HEPATITIS B SURFACE ANTIGEN Non-Reactive (Nonreactive); HEPATITIS C ANTIBODY Non-Reactive (Nonreactive)
[2023-09-01 23:07] LABS: HEPATITIS B CORE IGM ANTIBODY Non-Reactive (Negative)
[2023-09-02] VITALS (33 sets, daily range): BP systolic 86–112; BP diastolic 19–64; PULSE 71–86; RESP 10–41; O2SAT 92–95
[2023-09-02 04:57] LABS: HEMATOCRIT 38.6 % (42-54); MEAN CORPUSCULAR HGB CONC 32.6 g/dL (32.0-36.0); MEAN CORPUSCULAR VOLUME 95.1 fL (79-99); NUCLEATED RED BLOOD CELLS 0.5 % (0.0-0.19); RED BLOOD CELL COUNT(AUTO) 4.06 MIL/uL (4.50-6.20); RED CELL DISTRIBUTION WIDTH 15.2 % (11.0-15.5); WHITE BLOOD COUNT (AUTO) 8.1 K/uL (4.8-10.8)
[2023-09-02 05:30] LABS: ALBUMIN 3.2 g/dL (3.5-5.0); BILIRUBIN,TOTAL 2.6 mg/dL (0.2-1.0); CREATININE 2.6 mg/dL (0.5-1.5); MAGNESIUM 2.6 mg/dL (1.80-2.40); POTASSIUM 4.9 mmol/L (3.5-5.1); TOTAL PROTEIN, SERUM 5.9 g/dL (6.0-8.3)
[2023-09-02] MEDS ORDERED: DOBUTAMINE 250MG/D5 250ML 250 ML IV SCH (12:30)
[2023-09-02] MEDS: SODIUM ZIRCONIUM CYCLOSILICATE 5 GM POWD.PACK PO ONE (13:38)
[2023-09-02] MEDS: DOBUTAMINE 250MG/D5 250ML 250 ML IV SCH (13:46)
[2023-09-02] MEDS: [UNRECOGNIZED DRUG - OTHER] IV SCH (13:47)
[2023-09-02] MEDS: FUROSEMIDE IV SCH (13:47)
[2023-09-02 14:19] LABS: ABG HCO3 20.1 mmol/L (21.0-28.0); ABG OXYGEN SATURATION 93.5 % (95.0-99.0); ABG PCO2 30 mmHg (35-48); ABG PH 7.439 (7.35-7.450); CARBON MONOXIDE 0.9; DEVICE COMMENT RR RA ROSIE RN; HHb 6.4; PO2, ARTERIAL BG 74.8 mmHg (83.0-108.0); VENT MODE, BG RA (ROOM AIR)
[2023-09-02 16:19] LABS: CREATININE 2.3 mg/dL (0.5-1.5); MAGNESIUM 2.5 mg/dL (1.80-2.40); POTASSIUM 4.6 mmol/L (3.5-5.1)
[2023-09-02 18:33] LABS: CREATININE,URINE RANDOM 98 mg/dL (30-135)
[2023-09-02 18:46] LABS: SODIUM,URINE RANDOM < 13 mmol/l (40-220)
[2023-09-02] MEDS: FUROSEMIDE 100MG VIAL ONE (22:28)
[2023-09-03] VITALS (51 sets, daily range): BP systolic 78–125; BP diastolic 26–64; PULSE 63–81; RESP 7–37; O2SAT 92–98
[2023-09-03 06:27] LABS: HEMATOCRIT 34.3 % (42-54); MEAN CORPUSCULAR HEMOGLOBIN 31.2 pg (27.0-33.0); MEAN CORPUSCULAR HGB CONC 34.1 g/dL (32.0-36.0); MEAN CORPUSCULAR VOLUME 91.5 fL (79-99); NUCLEATED RED BLOOD CELLS 0.7 % (0.0-0.19); RED BLOOD CELL COUNT(AUTO) 3.75 MIL/uL (4.50-6.20); RED CELL DISTRIBUTION WIDTH 15.1 % (11.0-15.5); WHITE BLOOD COUNT (AUTO) 7.4 K/uL (4.8-10.8)
[2023-09-03 07:08] LABS: ALBUMIN 2.8 g/dL (3.5-5.0); BILIRUBIN,DIRECT 0.8 mg/dL (0.0-0.3); BILIRUBIN,TOTAL 1.9 mg/dL (0.2-1.0); CREATININE 2.1 mg/dL (0.5-1.5); MAGNESIUM 2.2 mg/dL (1.80-2.40); PHOSPHORUS 4.1 mg/dL (2.5-4.9); POTASSIUM 3.7 mmol/L (3.5-5.1); TOTAL PROTEIN, SERUM 5.1 g/dL (6.0-8.3)
[2023-09-03] MEDS ORDERED: RENAL DOSE IV SCH (13:00)
[2023-09-03] MEDS ORDERED: COMPOUND IV MISC 1 EACH IVSOLN MISC PRN (13:30)
[2023-09-03] MEDS: MEROPENEM 1 GM/NS 100 CRCL 26-50 IV SCH (14:28)
[2023-09-03 16:14] LABS: CREATININE 1.8 mg/dL (0.5-1.5); MAGNESIUM 2.1 mg/dL (1.80-2.40); POTASSIUM 3.1 mmol/L (3.5-5.1)
[2023-09-03] MEDS: KCL 20 MEQ ERTAB PO ONE ×2 (20:54)
[2023-09-04] VITALS (9 sets, daily range): BP systolic 96–109; BP diastolic 40–49; PULSE 70–80; RESP 18–20; O2SAT 95–98
[2023-09-04 04:43] LABS: HEMATOCRIT 35.1 % (42-54); MEAN CORPUSCULAR HGB CONC 33.3 g/dL (32.0-36.0); MEAN CORPUSCULAR VOLUME 92.9 fL (79-99); NUCLEATED RED BLOOD CELLS 0.4 % (0.0-0.19); RED BLOOD CELL COUNT(AUTO) 3.78 MIL/uL (4.50-6.20); RED CELL DISTRIBUTION WIDTH 15.2 % (11.0-15.5); WHITE BLOOD COUNT (AUTO) 7.7 K/uL (4.8-10.8)
[2023-09-04 05:02] LABS: ALBUMIN 2.8 g/dL (3.5-5.0); BILIRUBIN,TOTAL 1.9 mg/dL (0.2-1.0); CREATININE 1.5 mg/dL (0.5-1.5); MAGNESIUM 1.9 mg/dL (1.80-2.40); POTASSIUM 3.2 mmol/L (3.5-5.1); TOTAL PROTEIN, SERUM 5.3 g/dL (6.0-8.3)
[2023-09-04] MEDS: KCL 20 MEQ ERTAB PO PRN (09:20)
[2023-09-04] MEDS: POTASSIUM CHLORIDE 10% ELIXIR 20 MEQ/15 ML UDCUP PO PRN (11:50)
[2023-09-04] MEDS: KCL 20 MEQ ERTAB PO ONE (15:32)
[2023-09-04 15:59] LABS: CREATININE 1.6 mg/dL (0.5-1.5); POTASSIUM 3.4 mmol/L (3.5-5.1)
[2023-09-05] VITALS (7 sets, daily range): BP systolic 89–109; BP diastolic 38–48; PULSE 68–81; RESP 18–20; O2SAT 96–97
[2023-09-05 04:00] LABS: HEMATOCRIT 34.9 % (42-54); MEAN CORPUSCULAR HEMOGLOBIN 30.5 pg (27.0-33.0); MEAN CORPUSCULAR VOLUME 92.6 fL (79-99); NUCLEATED RED BLOOD CELLS 0.3 % (0.0-0.19); RED BLOOD CELL COUNT(AUTO) 3.77 MIL/uL (4.50-6.20); WHITE BLOOD COUNT (AUTO) 6.2 K/uL (4.8-10.8)
[2023-09-05 04:35] LABS: ALBUMIN 2.7 g/dL (3.5-5.0); BILIRUBIN,TOTAL 1.6 mg/dL (0.2-1.0); CREATININE 1.6 mg/dL (0.5-1.5); MAGNESIUM 1.8 mg/dL (1.80-2.40); TOTAL PROTEIN, SERUM 5.2 g/dL (6.0-8.3)
[2023-09-05] MEDS: POTASSIUM CHLORIDE 10MEQ/100ML 100 ML IV PRN (05:21)
[2023-09-05] MEDS: FUROSEMIDE 40MG VIAL IV SCH (08:20)
[2023-09-05] MEDS ORDERED: IOHEXOL 350 MG/ML 100ML INFUS..BTL IV ONE (12:32)
[2023-09-05 13:14] LABS: ANTI-SCLERODERMA 70 0.6 AI (0.0-0.9)
[2023-09-05 16:23] LABS: CREATININE 1.6 mg/dL (0.5-1.5); MAGNESIUM 1.9 mg/dL (1.80-2.40); POTASSIUM 3.5 mmol/L (3.5-5.1)
[2023-09-06] VITALS (9 sets, daily range): BP systolic 92–110; BP diastolic 38–61; PULSE 71–85; RESP 18–28; O2SAT 94–97
[2023-09-06 09:05] LABS: CREATININE 1.5 mg/dL (0.5-1.5); POTASSIUM 3.9 mmol/L (3.5-5.1)
[2023-09-06 15:43] LABS: CREATININE 1.3 mg/dL (0.5-1.5); MAGNESIUM 1.8 mg/dL (1.80-2.40); POTASSIUM 3.5 mmol/L (3.5-5.1)
[2023-09-07] VITALS (7 sets, daily range): BP systolic 92–113; BP diastolic 43–64; PULSE 77–88; RESP 18; O2SAT 3
[2023-09-07 03:57] LABS: CREATININE 1.5 mg/dL (0.5-1.5); POTASSIUM 3.7 mmol/L (3.5-5.1)
[2023-09-07 14:13] LABS: ALPHA-1-ANTITRYPSIN 168 mg/dL (101-187)
== END 2023-09-07 19:09 | disposition short-term general hospital (02) | DRG 192 ==
LOC: 2AH 22:06 → 2CH 09-02 13:12 → 2AH 09-03 22:50
PROVIDERS: ADMIT Internal Medicine; ATTEND Internal Medicine
PROC: 4A023N7 Measurement of Cardiac Sampling and Pressure, Left Heart, Percutaneous Approach (ICD-10-PCS; principal; 2023-08-31)
PROC: B2111ZZ Fluoroscopy of Multiple Coronary Arteries using Low Osmolar Contrast (ICD-10-PCS; 2023-08-31)
DX: I08.0 Rheumatic disorders of both mitral and aortic valves (principal); J96.21 Acute and chronic respiratory failure with hypoxia; K72.00 Acute and subacute hepatic failure without coma; I50.43 Acute on chronic combined systolic (congestive) and diastolic (congestive) heart failure; E87.1 Hypo-osmolality and hyponatremia; I27.20 Pulmonary hypertension, unspecified; D69.6 Thrombocytopenia, unspecified; N17.9 Acute kidney failure, unspecified; I42.0 Dilated cardiomyopathy; I13.0 Hypertensive heart and chronic kidney disease with heart failure and stage 1 through stage 4 chronic kidney disease, or unspecified chronic kidney disease; I35.0 Nonrheumatic aortic (valve) stenosis; E11.22 Type 2 diabetes mellitus with diabetic chronic kidney disease; N18.9 Chronic kidney disease, unspecified; M41.9 Scoliosis, unspecified; E78.5 Hyperlipidemia, unspecified; I25.10 Atherosclerotic heart disease of native coronary artery without angina pectoris; I37.1 Nonrheumatic pulmonary valve insufficiency; K82.8 Other specified diseases of gallbladder; K76.1 Chronic passive congestion of liver; K76.0 Fatty (change of) liver, not elsewhere classified; F41.9 Anxiety disorder, unspecified; J98.4 Other disorders of lung; I95.89 Other hypotension; Z79.899 Other long term (current) drug therapy; Z95.3 Presence of xenogenic heart valve
CPT/HCPCS: 36415; 36600; 71045; 74174; 74176; 74181; 75574; 76700; 78226; 80048; 80053; 80061; 80074; 80076; 80305; 81001; 82103; 82104; 82105; 82140; 82306; 82390; 82435; 82570; 82803; 82947; 82948; 83036; 83540; 83550; 83605; 83735; 83880; 84100; 84132; 84295; 84300; 85018; 85025; 85027; 85610; 85730; 86015; 86038; 86215; 86235; 86376; 86381; 87040; 93306; 93356; 93454; 99156; 99157; A4344; A4357; A9537; C1760; C1894; G0378; J1250; J1644; J1940; J2185; J2250; J3475; J3480; J3490; Q9967; S8037